=== PATIENT | male | born 1980 | race Hispanic/Latino ===

== ENCOUNTER 2024-11-08 10:08 | Outpatient (CLI) | payer BC | END 2024-11-08 10:09 | disposition home or self-care (01) | LOC: CSHWCC 10:08 | PROVIDERS: ATTEND Nurse Practitioner Family | DX: Z09 Encounter for follow-up examination after completed treatment for conditions other than malignant neoplasm (principal); Z86.31 Personal history of diabetic foot ulcer; E11.65 Type 2 diabetes mellitus with hyperglycemia; E66.01 Morbid (severe) obesity due to excess calories | CPT/HCPCS: 99212; G0463 ==